=== PATIENT | female | born 1955 | race Caucasian/White ===

== ENCOUNTER 2016-07-09 11:28 | Emergency (ER) | payer BC ==
[~2016-07-09] VITALS: Ht 162.6 cm; Wt 70.0 kg
[~2016-07-09 11:28] MED LIST: ALBU8I INH; MMW SWISH-SPIT; MORP30SU PO; PRED20 PO; ZITH250T PO
[2016-07-09 11:45] VITALS: BP 112/63; PULSE 75; RESP 18; TEMP 98.5; O2SAT 98
[2016-07-09] MEDS ORDERED: TETANUS/DIPHTHERIA TOXOID ADULT 0.5 ML VIAL IM ONE (13:00)
--- NOTE | 2016-07-09 13:06 | PD ---
HPI Chief Complaint: Fall Time Seen by Provider: 12:50 Travel History International Travel<30 days: No Contact w/Intl Traveler<30days: No Traveled to known affect area: No History of Present Illness HPI Patient is a 61-year-old female who presents emergency department for evaluation after she sustained a mechanical fall at home. Patient states she was walking to her neighbor's house, on her way home she tripped on the sidewalk , hitting her chin and lip on the concrete. She denies any dizziness, chest pain, shortness of breath prior to the fall. Patient states that she does fall frequently because she doesn't walk right to her hip pain. Patient denies any loss of consciousness. She states that her chin and her lower lip hurt. She takes morphine for her hip pain, she reports taking the last dose several days ago. PFSH Past Medical History Arthritis: Yes Diminished Hearing: No Musculoskeletal: Yes (CHRONIC BACK AND KNEE PAIN ) Respiratory: Yes (Chronic bronchial PNA) Immunizations Current: Yes Migraines: Yes Tetanus Vaccination: Unknown Influenza Vaccination: No ?: Not LMP: Kay- Menopausal: Yes : 1 Para: 1 Miscarriage: 0 : 0 Past Surgical History Section: Yes (x1) Hysterectomy: Yes Tonsillectomy: Yes Tympanostomy Tube: Yes (bilat ears) Social History Alcohol Use: No Tobacco Use: No (quit 35 yrs ago) Substance Use: No Allergies-Medications (Allergen,Severity, Reaction): Coded Allergies: Aspirin (Verified Allergy, Severe, Anaphylaxis, 07/09/16) Sulfa (Verified Allergy, Intermediate, RASH, 07/09/16) Reported Meds & Prescriptions Reported Meds & Active Scripts Active Reported Morphine Sulfate 30 Mg Tab 30 Mg PO DAILY Review of Systems Except as stated in HPI: all other systems reviewed are Neg Eyes: No: Visual changes HENT: No: Headaches Cardiovascular: No: Chest Pain or Discomfort Respiratory: No: Shortness of Breath Gastrointestinal: No: Nausea, Abdominal Pain Musculoskeletal: Positive: Myalgias, Pain Skin: Positive Lumps (on her chin), Positive Other (laceration to inner lower lip) Neurologic: Positive: Slurred Speech Physical Exam Narrative GENERAL: Well-developed, well-nourished, alert female. Resting comfortably in no acute distress. Appears altered. SKIN: Warm and dry. There is a 0.5 cm laceration to the mid inner lower lip. It is well approximated. No active bleeding noted. HEAD: Atraumatic. Normocephalic. EYES: Pupils equal and round. No scleral icterus. No injection or drainage. ENT: No nasal bleeding or discharge. Mucous membranes pink and moist. NECK: Trachea midline. No JVD. CARDIOVASCULAR: Regular rate and rhythm. No murmur appreciated. RESPIRATORY: No accessory muscle use. Clear to auscultation. Breath sounds equal bilaterally. GASTROINTESTINAL: Abdomen soft, non-tender, nondistended. Hepatic and splenic margins not palpable. MUSCULOSKELETAL: No obvious deformities. No clubbing. No cyanosis. No edema. NEUROLOGICAL: Awake and alert. No obvious cranial nerve deficits. Motor grossly within normal limits. Slow speech, slightly slurred. PSYCHIATRIC: Appropriate mood and affect; insight and judgment normal. Data Data Last Documented VS Vital Signs Date Time Temp Pulse Resp B/P Pulse Ox O2 Delivery O2 Flow Rate FiO2 07/09/16 11:45 98.5 75 18 112/[address] Brain W/O Iv Contrast(Rout) (07/09/16 ) Ct Facial Bones W/O Iv Cont (07/09/16 ) Drug Screen, Random Urine (07/09/16 12:49) Tetanus/Diphtheria Tox Adult (Tetanus/Di (07/09/16 13:00) Labs Laboratory Tests Test 07/09/16 13:00 Urine Opiates Screen NEG Urine Barbiturates Screen NEG Urine Amphetamines Screen NEG Urine Benzodiazepines Screen NEG Urine Cocaine Screen NEG Urine Cannabinoids Screen POS MDM Medical Decision Making Medical Screen Exam Complete: Yes Emergency Medical Condition: Yes Interpretation(s) Last Impressions Maxillofacial CT 07/09/16 0000 Signed Impressions: Service Date/Time: Saturday, July 09, 2016 13:48 - CONCLUSION: Negative for fracture, minimal left maxillary sinus disease. Juan Graham MD FACR Head CT 07/09/16 0000 Signed Impressions: Service Date/Time: Saturday, July 09, 2016 13:48 - CONCLUSION: No acute disease. Juan Graham MD FACR Laboratory Tests Test 07/09/16 13:00 Urine Opiates Screen NEG Urine Barbiturates Screen NEG Urine Amphetamines Screen NEG Urine Benzodiazepines Screen NEG Urine Cocaine Screen NEG Urine Cannabinoids Screen POS Vital Signs Date Time Temp Pulse Resp B/P Pulse Ox O2 Delivery O2 Flow Rate FiO2 07/09/16 11:45 98.5 75 18 112/63 98 Differential Diagnosis Contusion versus concussion versus hemorrhage versus intoxication versus electrolyte abnormality versus other. Narrative Course Patient is a 61-year-old female who presented to her arm for evaluation after a trip and fall at home just prior to arrival. Patient appears altered, her speech is slightly slurred. She denies taking any morphine this morning or in several days. CT scan of the brain and facial bones ordered and pending. Urine drug screen ordered. Urine drug screen was positive for marijuana. CT scan of the brain is negative for acute abnormality. CT scan of the facial bones negative for acute fracture. Augmentin given to prevent secondary to bacterial infection from wound and mouth. Wound care was provided. Patient was advised to follow-up with her primary doctor. She was encouraged to avoid marijuana use to further prevent falls. Patient verbalized understanding of instructions. She was encouraged to return to the department immediately for any new or worsening symptoms. Patient is stable for discharge. Diagnosis Primary Impression: Fall Qualified Code: W19.XXXA - Fall, initial encounter Additional Impression: Lip laceration Qualified Code: S01.511A - Lip laceration, initial encounter Referrals: Vinay Mendieta MD 2 days Patient Instructions: General Instructions Additional Instructions: Take ibuprofen as needed and as directed for pain Apply cool compresses to lower lip Avoid marijuana use Take medications as directed Return to emergency department for any new or worsening symptoms Med/Other Pt SpecificInfo: Prescription(s) given Scripts Amoxicillin-Clavulanate (Augmentin)875-125 mg [id number] Mg PO BID 10 Days Ref 0 not for use in CrCl <30 ml/min. Prov:Randi Cox 07/09/16 Ibuprofen 800 Mg [id number] Mg PO Q8H PRN (Pain/Inflammation) #60 TAB Ref 0 Prov:Randi Cox 07/09/16 Disposition: 01 DISCHARGE HOME Condition: Stable Randi Cox Jul 09, 2016 13:06
[2016-07-09 13:36] LABS: AMPHETAMINE, URINE NEG (NEG); BARBITURATES, URINE NEG (NEG)
[2016-07-09 13:37] LABS: COCAINE, URINE NEG (NEG)
--- NOTE | 2016-07-09 14:03 | RADHPO ---
EXAM DATE/TIME: 07/09/2016 13:48 [facility] COMPARISON: CT BRAIN W/O CONTRAST, December 29, 2015, 13:46. INDICATIONS : Fall. Headache. RADIATION DOSE: 60.33 CTDIvol (mGy) MEDICAL HISTORY : None SURGICAL HISTORY : Tonsillectomy. Hysterectomy. ENCOUNTER: Initial ACUITY: 1 day PAIN SCALE: 4/10 LOCATION: cranial TECHNIQUE: Multiple contiguous axial images were obtained of the head. Using automated exposure control and adj ustment of the mA and/or kV according to patient size, radiation dose was kept as low as reasonably a chievable to obtain optimal diagnostic quality images. FINDINGS: CEREBRUM: The ventricles are normal for age. No evidence of midline shift, mass lesion, hemorrhage or acute in farction. No extra-axial fluid collections are seen. POSTERIOR FOSSA: The cerebellum and brainstem are intact. The 4th ventricle is midline. The cerebellopontine angle i s unremarkable. EXTRACRANIAL: The visualized portion of the orbits is intact. SKULL: The calvaria is intact. No evidence of skull fracture. CONCLUSION: No acute disease. Juan Graham MD FACR on July 09, 2016 at 14:01 Board Certified Radiologist. This report was verified electronically.
--- NOTE | 2016-07-09 14:18 | RADHPO ---
EXAM DATE/TIME: 07/09/2016 13:48 [facility] COMPARISON: No previous studies available for comparison. INDICATIONS : Fall. Facial abrasions. Mouth and chin pain. RADIATION DOSE: 34.93 CTDIvol (mGy) MEDICAL HISTORY : None SURGICAL HISTORY : Tonsillectomy. Hysterectomy. ENCOUNTER: Initial ACUITY: 1 day PAIN SCORE: 4/10 LOCATION: facial TECHNIQUE: Volumetric scanning of the facial bones was performed. Using automated exposure control and adjustme nt of the mA and/or kV according to patient size, radiation dose was kept as low as reasonably achiev able to obtain optimal diagnostic quality images. FINDINGS: ORBITS: The orbital and infraorbital osseous structures are intact. The retroconal structures have a normal configuration. No radiopaque foreign bodies are seen. NASAL BONE: The nasal bone and maxillary spine are intact ZYGOMATIC ARCHES: Symmetric without evidence of fracture. SINUSES: Minimal left maxillary sinus disease is evident.. NASAL CAVITY: The nasal septum is intact and midline. The lacrimal ducts are intact. SOFT TISSUES: No radiopaque foreign bodies seen. No soft-tissue swelling is seen. INTRACRANIAL: No intracranial air seen. CRIBIFORM PLATE: Grossly intact. CONCLUSION: Negative for fracture, minimal left maxillary sinus disease. Juan Graham MD FACR on July 09, 2016 at 14:15 Board Certified Radiologist. This report was verified electronically.
[2016-07-09] MEDS ORDERED: AUGM875T PO (14:43)
[2016-07-09] MEDS ORDERED: IBUP800T23 PO (14:43)
[2016-07-09] MEDS ORDERED: IBUPROFEN 800 MG TAB PO ONE (14:45)
[2016-07-09] MEDS ORDERED: AMOXICILLIN/CLAVULANATE K 875 MG TAB PO ONE (14:45)
== END 2016-07-09 15:00 | disposition home or self-care (01) ==
LOC: PHED 11:28 → PHEFT 15:00
DX: S01.511A Laceration without foreign body of lip, initial encounter (principal); G89.29 Other chronic pain; Z23 Encounter for immunization; Z79.891 Long term (current) use of opiate analgesic; W01.198A Fall on same level from slipping, tripping and stumbling with subsequent striking against other object, initial encounter; Z91.81 History of falling; Y93.01 Activity, walking, marching and hiking; Y92.480 Sidewalk as the place of occurrence of the external cause
CPT/HCPCS: 70450; 70486; 80307; 90471; 90714

== ENCOUNTER 2017-05-12 00:04 | Emergency (ER) | payer BC ==
[~2017-05-12 00:04] MED LIST changes: -ALBU8I INH; +AUGM875T PO; +IBUP1TAB7 PO; -MMW SWISH-SPIT; -PRED20 PO; -ZITH250T PO
[2017-05-12 00:06] VITALS: BP 115/58; PULSE 94; RESP 20; TEMP 97.7; O2SAT 6; O2SAT 96
[2017-05-12] MEDS ORDERED: HYDR-3583 PO (00:09)
[2017-05-12] MEDS ORDERED: SODIUM CHLORIDE 0.9% FLUSH 10 ML FLUSH IV FLUSH PRN (00:30)
[2017-05-12 00:47] LABS: AUTOMATED NEUTROPHIL # 3.6 TH/MM3 (1.8-7.7); BASOPHIL % 0.7 % (0.0-2.0); EOSINOPHIL # 0.1 TH/MM3 (0-0.4); EOSINOPHIL % 1.7 % (0.0-4.0); HEMATOCRIT 37.9 % (35.0-46.0); HEMO FLAGS DIFF FINAL; LYMPH % 37.7 % (9.0-44.0); LYMPHOCYTE # 2.5 TH/MM3 (1.0-4.8); MEAN CELL VOLUME 85.7 FL (80.0-100.0); MEAN CORPUSCULAR HEMOGLOBIN 29.5 PG (27.0-34.0); MEAN CORPUSCULAR HGB CONC 34.4 % (32.0-36.0); MONO % 5.8 % (0.0-8.0); NEUT % 54.1 % (16.0-70.0); PLATELET COUNT 181 TH/MM3 (150-450); RED BLOOD COUNT 4.42 MIL/MM3 (4.00-5.30); RED CELL DISTRIBUTION WIDTH 13.3 % (11.6-17.2); WHITE BLOOD COUNT 6.7 TH/MM3 (4.0-11.0)
[2017-05-12 01:21] LABS: ALT (GPT) 76 U/L (10-53); ANION GAP 7 MEQ/L (5-15); AST (GOT) 34 U/L (15-37); BICARBONATE 27.8 MEQ/L (21.0-32.0); BLOOD UREA NITROGEN 18 MG/DL (7-18); CHLORIDE 108 MEQ/L (98-107); GLOMERULAR FILTRATION RATE 86 ML/MIN (>89); SODIUM (NA) 143 MEQ/L (136-145)
[2017-05-12 01:23] LABS: ALKALINE PHOSPHATASE 125 U/L (45-117); TOTAL BILIRUBIN ADULT 0.2 MG/DL (0.2-1.0)
[2017-05-12 01:32] LABS: BACTERIA, URINE FEW /hpf; BLOOD, URINE MOD (NEG); COMMENT (UR) CULTURE INDICATED; CULTURE IF INDICATED CULTURE INDICATED; GLUCOSE,URINE NEG (NEG); KETONE, URINE NEG (NEG); MUCUS URINE FEW /lpf (OCC); NITRITE,URINE POS (NEG); PH, URINE 6.5 (5.0-8.5); SQUAMOUS EPITHELIAL CELL URINE 9 /hpf (0-5); URINE COLOR YELLOW (YELLW/STRAW)
--- NOTE | 2017-05-12 01:38 | PD ---
HPI . Abdominal pain Chief Complaint: Abdominal Pain Time Seen by Provider: 00:22 Travel History International Travel<30 days: No Contact w/Intl Traveler<30days: No Traveled to known affect area: No History of Present Illness HPI Patient presents with a chief complaint of abdominal pain. She describes diffuse abdominal pain which has been present for the last week. It is constant and is described as a sharp pain which she rates 10/10. Pain is exacerbated by eating. It is associated with nausea. It is also associated with constipation. She states that she has not had a normal bowel movement in 3 weeks. Patient reports a recent diagnosis of bladder cancer. It was diagnosed on . She also reports that she is currently being evaluated by gastroenterology. She states that she is scheduled for an EGD and colonoscopy in the near future. She further reports that the medical social worker would like for her to have a CT of her abdomen and pelvis but that that has not been done yet. PFSH Past Medical History Arthritis: Yes Cancer: Yes (BLADDER CA DIAGNOSED 04/2017) Diminished Hearing: No Musculoskeletal: Yes (CHRONIC BACK AND KNEE PAIN ) Respiratory: Yes (Chronic bronchial PNA) Immunizations Current: Yes Migraines: Yes Tetanus Vaccination: Unknown Influenza Vaccination: No Menopausal: Yes : 1 Para: 1 Miscarriage: 0 : 0 Past Surgical History Section: Yes (x1) Hysterectomy: Yes Tonsillectomy: Yes Tympanostomy Tube: Yes (BILATERAL EARS) Social History Alcohol Use: No Tobacco Use: No (quit 35 yrs ago) Substance Use: No Allergies-Medications (Allergen,Severity, Reaction): Coded Allergies: aspirin (Unverified Allergy, Severe, Anaphylaxis, 05/12/17) Sulfa (Sulfonamide Antibiotics) (Unverified Allergy, Intermediate, RASH, 05/12/17) Reported Meds & Prescriptions Reported Meds & Active Scripts Active Reported Hydrocodone-Acetaminophen 10-325 mg Tab 1 Tab PO HS PRN Review of Systems Except as stated in HPI: all other systems reviewed are Neg General / Constitutional: No: Fever, Chills Gastrointestinal: Positive: Nausea, Abdominal Pain, Constipation, No: Vomiting , Diarrhea Genitourinary: No: Urgency, Frequency, Dysuria Physical Exam Narrative GENERAL: Awake and alert in no acute distress. SKIN: warm/dry. HEAD: Normocephalic. Atraumatic. EYES: Pupils equal and round. No scleral icterus. No injection or drainage. ENT: No nasal bleeding or discharge. Mucous membranes pink and moist. NECK: Trachea midline. Full range of motion without pain.. CARDIOVASCULAR: Regular rate and rhythm. Heart sounds normal. RESPIRATORY: No accessory muscle use. Clear to auscultation. Breath sounds equal bilaterally. GASTROINTESTINAL: Abdomen soft. Diffuse tenderness. Bowel sounds present. Nondistended. MUSCULOSKELETAL: No obvious deformities. NEUROLOGICAL: Awake and alert. No obvious cranial nerve deficits. Motor grossly within normal limits. Normal speech. PSYCHIATRIC: Appropriate mood and affect; insight and judgment normal. Data Data Last Documented VS Vital Signs Date Time Temp Pulse Resp B/P (MAP) Pulse Ox O2 Delivery O2 Flow Rate FiO2 05/12/17 00:06 97.7 94 20 115/58 (77) 96 Room Air Orders Orders Complete Blood Count With Diff (05/12/17 00:23) Comprehensive Metabolic Panel (05/12/17:23) Lipase (05/12/17 00:23) Urinalysis - C+S If Indicated (05/12/17:23) Iv Access Insert/Monitor (05/12/17 00:23) Ecg Monitoring (05/12/17:23) Oximetry (05/12/17 00:23) Sodium Chloride 0.9% Flush (Ns Flush) (05/12/17 00:30) Ct Abd/Pel W Iv Contrast(Rout) (05/12/17 01:15) Urine Culture (05/12/17 00:10) Ceftriaxone Inj (Rocephin Inj) (05/12/17 01:45) Iohexol 350 Inj (Omnipaque 350 Inj) (05/12/17 01:50) Labs Laboratory Tests Test 05/12/17 00:10 05/12/17 00:30 Urine Color YELLOW Urine Turbidity HAZY Urine pH 6.5 Urine Specific Chambers 1.017 Urine Protein TRACE mg/dL Urine Glucose (UA) NEG mg/dL Urine Ketones NEG mg/dL Urine Occult Blood MOD Urine Nitrite POS Urine Bilirubin NEG Urine Urobilinogen LESS THAN 2.0 MG/DL Urine Leukocyte Esterase LARGE Urine RBC 52 /hpf Urine WBC /hpf Urine WBC Clumps OCC Urine Squamous Epithelial Cells 9 /hpf Urine Bacteria FEW /hpf Urine Mucus FEW /lpf Microscopic Urinalysis Comment CULTURE INDICATED White Blood Count 6.7 TH/MM3 Red Blood Count 4.42 MIL/MM3 Hemoglobin 13.0 GM/DL Hematocrit 37.9 % Mean Corpuscular Volume 85.7 FL Mean Corpuscular Hemoglobin 29.5 PG Mean Corpuscular Hemoglobin Concent 34.4 % Red Cell Distribution Width 13.3 % Platelet Count 181 TH/MM3 Mean Platelet Volume 7.9 FL Neutrophils (%) (Auto) 54.1 % Lymphocytes (%) (Auto) 37.7 % Monocytes (%) (Auto) 5.8 % Eosinophils (%) (Auto) 1.7 % Basophils (%) (Auto) 0.7 % Neutrophils # (Auto) 3.6 TH/MM3 Lymphocytes # (Auto) 2.5 TH/MM3 Monocytes # (Auto) 0.4 TH/MM3 Eosinophils # (Auto) 0.1 TH/MM3 Basophils # (Auto) 0.0 TH/MM3 CBC Comment DIFF FINAL Differential Comment Blood Urea Nitrogen 18 MG/DL Creatinine 0.69 MG/DL Random Glucose 116 MG/DL Total Protein 7.0 GM/DL Albumin 3.8 GM/DL Calcium Level 9.4 MG/DL Alkaline Phosphatase 125 U/L Aspartate Amino Transf (AST/SGOT) 34 U/L Alanine Aminotransferase (ALT/SGPT) 76 U/L Total Bilirubin 0.2 MG/DL Sodium Level 143 MEQ/L Potassium Level 4.0 MEQ/L Chloride Level 108 MEQ/L Carbon Dioxide Level 27.8 MEQ/L Anion Gap 7 MEQ/L Estimat Glomerular Filtration Rate 86 ML/MIN Lipase 438 U/L [facility] Medical Decision Making Medical Screen Exam Complete: Yes Emergency Medical Condition: Yes Differential Diagnosis Differential diagnosis of abdominal pain includes but is not limited to gastritis, pancreatitis, hepatitis, gastroenteritis, gallbladder disease, constipation, urinary retention, UTI, peptic ulcer disease, diverticulitis or appendicitis Narrative Course Patient presents complaining with diffuse abdominal pain associated with nausea and constipation. CBC & BMP Diagram 05/12/17 00:30 Total Protein 7.0, Albumin 3.8, Calcium Level 9.4, Alkaline Phosphatase 125 H, Aspartate Amino Transf (AST/SGOT) 34, Alanine Aminotransferase (ALT/SGPT) 76 H, Total Bilirubin 0.2 UA>>large LE, pos nit, large LE, 52 RBCs, innum WBCs, occ WBC clumps, few bact Rocephin has been ordered. CT abd/pelvis: 1. Hepatic steatosis. 2. Liver cyst. 3. Left ovarian cyst. 4. Circumferential bladder wall thickening, nonspecific. The patient will be discharged home on Macrobid for UTI. She will be given instructions regarding treatment for constipation. Diagnosis Primary Impression: Abdominal pain Qualified Codes: R10.84 - Generalized abdominal pain Additional Impressions: Urinary tract infection Qualified Codes: N30.00 - Acute cystitis without hematuria Constipation Qualified Codes: K59.00 - Constipation, unspecified Patient Instructions: Abdominal Pain (ED), Constipation (DC), General Instructions, Urinary Tract Infection in (GEN) Additional Instructions: See your doctor next week for recheck Med/Other Pt SpecificInfo: Prescription(s) given Scripts Nitrofurantoin Monohydrate Macrocrystals (Macrobid) 100 Mg Cap 100 MG PO BID for Infection for 5 Days, #10 CAP 0 Refills Prov: Corrie Cordoba MD 05/12/17 Disposition: DISCHARGE HOME Condition: Stable Corrie Cordoba MD May 12, 2017 01:38
[2017-05-12] MEDS ORDERED: cefTRIAXone INJ 1,000 MG in SODIUM CHLORIDE 0.9% INJ 100 ML IV ONE (01:45)
[2017-05-12] MEDS ORDERED: IOHEXOL 350 MG/ML 10 ML VIAL (for RAD DIAG) IVCONTRAST ONE (01:50)
--- NOTE | 2017-05-12 02:09 | RADRPT ---
EXAM DATE/TIME: 05/12/2017 01:46 [facility] COMPARISON: No previous studies available for comparison. INDICATIONS : Abdominal pain. IV CONTRAST: 96 cc Omnipaque 350 (iohexol) IV ORAL CONTRAST: No oral contrast ingested. RADIATION DOSE: 10.60 CTDIvol (mGy) MEDICAL HISTORY : Carcinoma, bladder. SURGICAL HISTORY : Hysterectomy. bilateral hip replacements ENCOUNTER: Initial ACUITY: 1 day PAIN SCALE: 7/10 LOCATION: abdomen TECHNIQUE: Volumetric scanning of the abdomen and pelvis was performed. Using automated exposure control and ad justment of the mA and/or kV according to patient size, radiation dose was kept as low as reasonably achievable to obtain optimal diagnostic quality images. DICOM format image data is available electro nically for review and comparison. FINDINGS: Lung bases are clear. Osseous structures are intact. Patient is status post hysterectomy and bilatera l total hip arthroplasty. No pleural or pericardial effusions are seen. Mild hepatic steatosis. There is a cyst in the left lobe medial segment measuring 1.2 cm. The gallbladder is contracted. Spleen, p ancreas, adrenal glands, bilateral kidneys are normal in appearance. Urinary bladder is obscured by s treak artifact from the hip arthroplasties. A left ovarian cyst measuring 6.8 x 5.5 cm in AP and senior sverse dimension is identified. 3.8 cm duodenal diverticulum. The urinary bladder wall obscured by st reak artifact does demonstrate circumferential wall thickening seen best on coronal images. This is n onspecific in this patient with history of bladder malignancy. CONCLUSION: 1. Hepatic steatosis. 2. Liver cyst. 3. Left ovarian cyst. 4. Circumferential bladder wall thickening, nonspecific. Luke Espinosa MD on May 12, 2017 at 2:05 Board Certified Radiologist. This report was verified electronically.
[2017-05-12] MEDS ORDERED: MACR100C2 PO (02:32)
== END 2017-05-12 03:18 | disposition home or self-care (01) ==
LOC: NEPE 00:04
DX: R10.84 Generalized abdominal pain (principal); N39.0 Urinary tract infection, site not specified; B96.20 Unspecified Escherichia coli [E. coli] as the cause of diseases classified elsewhere; K59.00 Constipation, unspecified; K76.0 Fatty (change of) liver, not elsewhere classified; K76.89 Other specified diseases of liver; N83.202 Unspecified ovarian cyst, left side; C67.9 Malignant neoplasm of bladder, unspecified; M19.90 Unspecified osteoarthritis, unspecified site
CPT/HCPCS: 74177; 80053; 81001; 83690; 85025; 87077; 87086; 87186; 96374; 99285; J0696; Q9967